=== PATIENT | male | born 1935 | race Caucasian/White ===

== ENCOUNTER 2017-11-12 00:38 | Emergency (ER) | payer MEDICARE ==
[2017-11-12 00:53] VITALS: BP 125/61; PULSE 60; O2SAT 96
--- NOTE | 2017-11-12 00:56 | ERPHSYRPT ---
- History of Present Illness Time Seen by Provider: 11/12/17 00:53 Source: patient, family Exam Limitations: no limitations Patient Subjective Stated Complaint: Wound Check Triage Nursing Assessment: Fistula placed today at [facility], bleeding noted to bandage on left forearm. Spouse states they were instructed to present to the ED if bleeding soaked through bandage. Pt is A&O x3, no distress noted. Pt is on warfarin. Physician History: Fistula placed today at [facility], bleeding noted to bandage on left forearm. Spouse states they were instructed to present to the ED if bleeding soaked through bandage. Timing/Duration: today Associated Symptoms: denies symptoms Hx Tetanus, Diphtheria Vaccination/Date Given: Yes Hx Influenza Vaccination/Date Given: Yes Hx Pneumococcal Vaccination/Date Given: Yes Immunizations Up to Date: Yes - Review of Systems Constitutional: No Symptoms Eyes: No Symptoms Ears, Nose, & Throat: No Symptoms Respiratory: No Symptoms Cardiac: No Symptoms Abdominal/Gastrointestinal: No Symptoms Genitourinary Symptoms: No Symptoms Musculoskeletal: No Symptoms Neurological: No Symptoms Hematologic/Lymphatic: Easy Bleeding - Social History Smoking Status: Current some day smoker Exposure to second hand smoke: No Patient Lives Alone: No - Nursing Vital Signs Nursing Vital Signs: Initial Vital Signs Temperature 97.9 F 11/12/17 00:48 Pulse Rate 60 11/12/17 00:48 Respiratory Rate 14 11/12/17 00:48 Blood Pressure 125/61 11/12/17 00:48 O2 Sat by Pulse Oximetry 96 11/12/17 00:48 Pain Scale Pain Intensity 0 - Physical Exam General Appearance: no apparent distress Extremity Exam: other (mild oozing from fistula sutures,) SpO2: 96 Oxygen Delivery: Room Air - Course Nursing assessment & vital signs reviewed: Yes - Progress Progress: improved Counseled pt/family regarding: diagnosis, need for follow-up - Departure Time of Disposition: 00:56 Departure Disposition: Home Clinical Impression: Arteriovenous fistula, acquired Condition: Stable Critical Care Time: No Referrals: MONIKA VILLARREAL [Primary Care Provider] - Additional Instructions: Please follow the instructions given to you. Please take your medication as prescribed if given. If symptoms recur or get worse, come back to the emergency room if you cannot reach your primary care physician, or call your primary care physician for an appointment. Again if your symptoms get worse, come back to the emergency room. Thanks for visiting emergency room, and let us take care of you.
== END 2017-11-12 01:03 | disposition home or self-care (01) ==
LOC: ED 00:38
DX: I77.0 Arteriovenous fistula, acquired (principal); Z79.01 Long term (current) use of anticoagulants
CPT/HCPCS: 99281

== ENCOUNTER 2020-06-14 18:03 | Emergency (ER) | payer MEDICARE ==
[2020-06-14 18:31] VITALS: BP 120/49; PULSE 54; O2SAT 98
[2020-06-14] MEDS ORDERED: CORTISPORIN EAR DROPS Solution 1OML OT ONE (18:35)
[2020-06-14] MEDS ORDERED: CORTISPORIN EAR DROPS 10 ML SUSPENSION OT ONE (18:39)
--- NOTE | 2020-06-14 18:47 | ERPHSYRPT ---
- History of Present Illness Time Seen by Provider: 06/14/20 18:42 Source: patient, family Exam Limitations: no limitations Patient Subjective Stated Complaint: Pt's stated that last night he woke to a "pop" in his right ear with severe pain and then this morning he had blood and drainage on his pillow Triage Nursing Assessment: Pt brought to the ER by his , dried blood to the outside of the right ear, pt denies pain at this time but states that it comes and goes, denies any pain prior to the "pop", vitals wnl, pulses normal Physician History: Pt's stated that last night he woke to a "pop" in his right ear with severe pain and then this morning he had blood and drainage on his pillow No active bleeding now, no other symptoms Timing/Duration: yesterday ENT Location: ear (R) Prearrival Treatment: no prearrival treatment Associated Symptoms: ear pain (R) Allergies/Adverse Reactions: No Known Drug Allergies Allergy (Verified 06/14/20 18:31) Home Medications: Furosemide 40 mg PO DAILY 06/14/20 [History] Omeprazole 40 mg PO DAILY 06/14/20 [History] Vit B Comp No.3/Folic/C/Biotin [Sejal-Tiera Rx Tablet] 1 tab PO DAILY 06/14/20 [History] Warfarin Sodium 2 mg PO UD 06/14/20 [History] lisinopriL [Lisinopril] 5 mg PO DAILY 06/14/20 [History] Hx Tetanus, Diphtheria Vaccination/Date Given: Yes Hx Influenza Vaccination/Date Given: Yes Hx Pneumococcal Vaccination/Date Given: Yes Travel Risk - International Travel Have you traveled outside of the country in past 3 weeks: No - Coronavirus Screening Are you exhibiting any of the following symptoms?: No Close contact with a COVID-19 positive Pt in past 14-21 Days: No - Review of Systems Constitutional: No Symptoms Eyes: No Symptoms Ears, Nose, & Throat: Ear Pain (rightear, old clots visible) Respiratory: No Symptoms Cardiac: No Symptoms Abdominal/Gastrointestinal: No Symptoms Genitourinary Symptoms: No Symptoms Musculoskeletal: No Symptoms - Past Medical History Pertinent Past Medical History: Yes Cardiac History: Hypertension History: Renal Disease - Past Surgical History Past Surgical History: Yes Musculoskeletal: Joint Replacement Other Surgical History: jaw - Social History Smoking Status: Former smoker Exposure to second hand smoke: No Drug Use: none Patient Lives Alone: No - Nursing Vital Signs Nursing Vital Signs: Initial Vital Signs Temperature 98.0 F 06/14/20 18:23 Pulse Rate 54 L 06/14/20 18:23 Blood Pressure 120/49 06/14/20 18:23 O2 Sat by Pulse Oximetry 98 06/14/20 18:23 Pain Scale Pain Intensity 0 - Physical Exam General Appearance: no apparent distress, alert Eye Exam: bilateral eye: PERRL, EOMI Ear Exam: right ear: bleeding (stopped now, old blood clots in right ear canal), TM perforation Nasal Exam: normal inspection Throat Exam: pharynx normal, moist mucus membranes, No tonsillar exudate Neck Exam: supple Cardiovascular/Respiratory Exam: normal breath sounds, regular rate/rhythm Abdominal Exam: non-tender, soft Neurologic Exam: alert, oriented x 3, sensation nml, No motor deficits Skin Exam: normal color, warm, dry SpO2: 98 - Course Nursing assessment & vital signs reviewed: Yes Ordered Tests: Medication Summary Discontinued Medications Generic Name Dose Route Start Last Admin Trade Name Dillon PRN Reason Stop Dose Admin Neomycin/Polymyxin/Hydrocortisone 10 ml 06/14/20 18:35 Cortisporin Ear Drops Solution 1oml OT 06/14/20 18:36 STAT ONE - Progress Progress: improved Progress Note: 06/14/20 18:44 bleeding stopped, cortisporin otic given, advised to use 4 times a day for 7 days Counseled pt/family regarding: diagnosis, need for follow-up - Departure Departure Disposition: Home Clinical Impression: Bleeding from right ear Condition: Stable Critical Care Time: No Referrals: MONIKA VILLARREAL [Primary Care Provider] - Follow Up with PCP/3 days Additional Instructions: Discharge/Care Plan ANGLEMIKHAIL ROONEY was seen on 06/14/20 in the Emergency Room. The patient was counseled regarding Diagnosis,Lab results, Imaging studies, need for follow up and when to return to the Emergency Room. Prescriptions given: Discharge Note I have spoken with the patient and/or caregivers. I have explained the patient's condition, diagnosis and treatment plan based on the information available to me at this time. I have answered the patient's and/or caregiver's questions and addressed any concerns. The patient and/or caregivers have as good understanding of the patient's diagnosis, condition and treatment plan as can be expected at this point. The vital signs have been stable. The patient's condition is stable and appropriate for discharge from the emergency department. The patient will pursue further outpatient evaluation with the primary care physician or other designated or consulting physician as outlined in the discharge instructions. The patient and/or caregivers are agreeable to this plan of care and follow-up instructions have been explained in detail. The patient and/or caregivers have received these instruction. The patient/and or caregivers are aware that any significant change in condition or worsening of symptoms should prompt an immediate return to this or the closest emergency department or call 911. Use 4 ear drops in right ear four times a day for 7 days
== END 2020-06-14 19:04 | disposition home or self-care (01) ==
LOC: ED 18:03
DX: H92.21 Otorrhagia, right ear (principal); H92.01 Otalgia, right ear; I10 Essential (primary) hypertension
CPT/HCPCS: 99283; A9270-GY

== ENCOUNTER 2021-08-23 16:38 | Emergency (ER) | payer MEDICARE ==
[2021-08-23] MEDS ORDERED: DUONEB 0.5-3 MG/3 ml Neb IH ONE ×2 (16:41→16:44)
[2021-08-23] MEDS ORDERED: solu-MEDROL 125 MG, Sterile H2O 10 ml 10 ML IV ONE ×2 (16:44)
[2021-08-23] MEDS ORDERED: PULMICORT 0.5 MG/2 ML RESPULES IH STA (16:44)
[2021-08-23] MEDS ORDERED: Sodium Chloride 0.9% 1000 ML 1,000 ML IV SCH (16:45)
[2021-08-23 16:58] LABS: Absolute Neutrophil Ct (ANC) 1.45 (1.4-6.9); BASOPHIL % 0.8 % (0.0-0.4); Basophil (Absolute #) 0.03 (0-0.4); Eosinophil (Absolute #) 0.23 (0-0.5); Hematocrit 33.3 % (42-50); Hemoglobin 11.1 gm/dl (12.5-18.0); Lymphocyte (Absolute #) 1.55 (1.0-4.6); Lymphocytes % 40.5 % (24.0-44.0); Mean Cell Volume 110.3 fl (78-100); Mean Corpuscular Hemoglobin 36.8 pg (26-32); Mean Corpuscular Hgb Concent. 33.3 g/dl (32-36); Mean Platelet Volume 13.6 fl (7.5-11.0); Monocyte (Absolute #) 0.57 (0.0-1.3); Monocytes % 14.9 % (0.0-12.0); Neutrophil % 37.8 % (36.0-66.0); Platelet Count 51 K/mm3 (150-450); Red Blood Count 3.02 M/mm3 (4.1-5.6); Red Cell Distribution Width 15.7 % (11.5-14.0); White Blood Count 3.8 K/mm3 (4.0-10.5)
[2021-08-23] MEDS ORDERED: Sterile H2O 10 ml IJ ONE (17:03)
[2021-08-23] MEDS ORDERED: Sodium Chloride 0.9% 1000 ML 1,000 ML ONE (17:03)
[2021-08-23] MEDS ORDERED: solu-MEDROL ONE (17:03)
[2021-08-23 17:20] LABS: ANION GAP 16.9 MEQ/L (5-15); BILIRUBIN,TOTAL 1.6 mg/dL (0.2-1.3); Calcium 9.3 mg/dL (8.4-10.2); Creatinine 1 6.12 mg/dL (0.66-1.25); EST GLOMERULAR FILTRATION RATE 9.3 ML/MIN; Potassium 4.8 mmol/L (3.5-5.1); Total Protein 6.7 g/dL (6.3-8.2)
--- NOTE | 2021-08-23 17:27 | ERPHSYRPT ---
- History of Present Illness Source: patient Exam Limitations: no limitations Patient Subjective Stated Complaint: PT HERE FOR INCREASE SOB SINCE TUE. AND STATES TODAY STARTED COUGHING, PT HAS RENAL FAILURE AND DOES DIALYSIS M/W/F. Triage Nursing Assessment: PT ALERT, RESP LABORED.FACE MASK IN PLACE, HAS DRY COUGH, WHEEZES HEARD, SKIN W/D. HAS EDEMA TO LOWER LEGS THAT PT STATES IS NORMAL Timing/Duration: today Possible Cause: no prior episodes Modifying Factors: Improves With: nothing Associated Symptoms: wheezing, productive cough, No fever, No chills Hx Tetanus, Diphtheria Vaccination/Date Given: Yes Hx Influenza Vaccination/Date Given: Yes Hx Pneumococcal Vaccination/Date Given: Yes Immunizations Up to Date: Yes <ISABEL MIRANDA - Last Filed: 08/23/21 18:17> <MERYL MARIN - Last Filed: 08/23/21 20:25> - History of Present Illness Time Seen by Provider: 08/23/21 17:22 Physician History: Patient is 85-year-old male with significant past medical history of hy pertensive heart disease and chronic kidney disease for which patient is on dialysis started having some chest congestion and shortness of breath started for last 1 week which got worse today so he came to the emergency room. Patient denies any fever nausea vomiting chest pain abdominal pain. Patient is on dialysis Tuesday. (ISABEL MIRANDA) Allergies/Adverse Reactions: No Known Drug Allergies Allergy (Verified 08/23/21 16:41) Home Medications: Furosemide 40 mg PO DAILY 06/14/20 [History] Omeprazole 40 mg PO DAILY 06/14/20 [History] Vit B Comp No.3/Folic/C/Biotin [Sejal-Tiera Rx Tablet] 1 tab PO DAILY 06/14/20 [History] Warfarin Sodium 4 mg PO UD 06/14/20 [History] lisinopriL [Lisinopril] 5 mg PO DAILY 06/14/20 [History] Travel Risk - International Travel Have you traveled outside of the country in past 3 weeks: No - Coronavirus Screening Are you exhibiting any of the following symptoms?: No Close contact with a COVID-19 positive Pt in past 14-21 Days: No - Vaccine Status Have you recieved a Covid-19 vaccination: Yes 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: [employer] <ISABEL MIRANDA - Last Filed: 08/23/21 18:17> - Review of Systems Constitutional: No Fever, No Chills Eyes: No Symptoms Ears, Nose, & Throat: No Symptoms Respiratory: Cough, Dyspnea, Dyspnea on Exertion ([place]), Wheezing Cardiac: No Chest Pain, No Edema, No Syncope Abdominal/Gastrointestinal: No Abdominal Pain, No Nausea, No Vomiting, No Diarrhea Genitourinary Symptoms: No Dysuria Musculoskeletal: No Back Pain, No Neck Pain Skin: No Rash Neurological: No Dizziness, No Focal Weakness, No Sensory Changes Psychological: No Symptoms Endocrine: No Symptoms All Other Systems: Reviewed and Negative <KATHERIN MIRANDASH - Last Filed: 08/23/21 18:17> - Past Medical History Pertinent Past Medical History: Yes Cardiac History: Hypertension History: Dialysis, Renal Disease - Past Surgical History Past Surgical History: Yes Musculoskeletal: Joint Replacement Other Surgical History: jaw,FISTULA LEFT ARM - Social History Smoking Status: Former smoker Exposure to second hand smoke: No Drug Use: none Patient Lives Alone: No <KATHERIN MIRANDASH - Last Filed: 08/23/21 18:17> - Physical Exam General Appearance: mild distress, alert Eye Exam: PERRL/EOMI Ears, Nose, Throat Exam: normal ENT inspection Neck Exam: normal inspection, supple Respiratory Exam: diminished breath sounds, crackles/rales, rhonchi, wheezing Cardiovascular/Chest Exam: normal heart sounds, regular rate/rhythm, edema, JVD Abdominal/Gastrointestinal Exam: soft, No tenderness, No distention, No mass Extremity Exam: non-tender, normal range of motion, normal inspection, no calf tenderness Neurologic Exam: alert, oriented x 3, cooperative, napper runner II-XII nml as tested, sensation nml, No motor deficits Skin Exam: normal color, warm, No dry SpO2: 98 <KATHERIN MIRANDASH - Last Filed: 08/23/21 18:17> - Physical Exam SpO2 Interpretation: normal <MERYL MARIN - Last Filed: 08/23/21 20:25> - Nursing Vital Signs Nursing Vital Signs: Initial Vital Signs Pulse Rate 86 08/23/21 16:45 Respiratory Rate 36 H 08/23/21 16:45 O2 Sat by Pulse Oximetry 96 08/23/21 16:45 Pain Scale Pain Intensity 0 - Course Nursing assessment & vital signs reviewed: Yes EKG Interpreted by Me: A-fib, Non-specific ST Changes - Radiology Exams Chest X-ray Interpretation: Reviewed by me (CHF changes) <ISABEL MIRANDA - Last Filed: 08/23/21 18:17> Ordered Tests: Active Orders 24 hr Category Date Time Status Supervisor Elementary Education STAT Care 08/23/21 16:44 Active EKG-ER Only STAT Care 08/23/21 16:44 Active Oxygen-ED Only Nasal Cannula 3 lpm Care 08/23/21 16:44 Active CHEST 1 VIEW (PORTABLE) Stat Exams 08/23/21 17:05 Taken CBC W DIFF Stat Lab 08/23/21 16:55 Completed CMP Stat Lab 08/23/21 16:55 Completed NT PRO BNP Stat Lab 08/23/21 16:55 Completed TROPONIN Q3H Lab 08/23/21 16:55 Completed TROPONIN Q3H Lab 08/23/21 19:50 Completed TROPONIN Q3H Lab 08/23/21 22:45 Ordered TROPONIN Q3H Lab 08/24/21 01:45 Ordered TROPONIN Q3H Lab 08/24/21 04:45 Ordered Respiratory Therapy Assessment DAILY RT 08/23/21 16:52 Active Medication Summary Generic Name Dose Route Start Last Admin Trade Name Freq PRN Reason Stop Dose Admin Sodium Chloride 1,000 mls @ 50 mls/hr 08/23/21 16:45 08/23/21 17:08 Sodium Chloride 0.9% 1000 Ml IV 09/22/21 16:44 50 mls/hr .Q20H KRYSTLE Administration Discontinued Medications Generic Name Dose Route Start Last Admin Trade Name Freq PRN Reason Stop Dose Admin Albuterol/Ipratropium Confirm 08/23/21 16:41 Duoneb 0.5-3 Mg/3 Ml Neb Administered 08/23/21 16:42 Dose 3 ml IH .STK-MED ONE Albuterol/Ipratropium 3 ml 08/23/21 16:44 08/23/21 16:45 Duoneb 0.5-3 Mg/3 Ml Neb IH 08/23/21 16:45 3 ml STAT ONE Administration Budesonide 0.5 mg 08/23/21 16:44 08/23/21 16:50 Pulmicort 0.5 Mg/2 Ml Respules IH 08/23/21 16:45 0.5 mg UD STA Administration Methylprednisolone Sodium 0 mg 08/23/21 16:44 08/23/21 17:07 Succinate 125 mg/ Sterile IV 08/23/21 16:45 125 mg Water 10 ml STAT ONE Administration Methylprednisolone Sodium Succinate Confirm 08/23/21 17:03 Solu-Medrol Administered 08/23/21 17:04 Dose 125 mg .ROUTE .STK-MED ONE Sterile Water Confirm 08/23/21 17:03 Sterile H2o 10 Ml Administered 08/23/21 17:04 Dose 10 ml IJ .STK-MED ONE Lab/Rad Data: Laboratory Result Diagrams 08/23/21 16:55 08/23/21 16:55 Laboratory Results 08/23/21 08/23/21 08/23/21 Range/Units 16:55 16:55 16:55 WBC 3.8 L (4.0-10.5) K/mm3 RBC 3.02 L (4.1-5.6) M/mm3 Hgb 11.1 L (12.5-18.0) gm/dl Hct 33.3 L (42-50) % MCV 110.3 H (78-100) fl MCH 36.8 H (26-32) pg MCHC 33.3 (32-36) g/dl RDW 15.7 H (11.5-14.0) % Plt Count 51 L (150-450) K/mm3 MPV 13.6 H (7.5-11.0) fl Gran % 37.8 (36.0-66.0) % Eos # (Auto) 0.23 (0-0.5) Absolute Lymphs (auto) 1.55 (1.0-4.6) Absolute Monos (auto) 0.57 (0.0-1.3) Lymphocytes % 40.5 (24.0-44.0) % Monocytes % 14.9 H (0.0-12.0) % Eosinophils % 6.0 H (0.00-5.0) % Basophils % 0.8 (0.0-0.4) % Absolute Granulocytes 1.45 (1.4-6.9) Basophils # 0.03 (0-0.4) Sodium 134 L (137-145) mmol/L Potassium 4.8 (3.5-5.1) mmol/L Chloride 96 L (98-107) mmol/L Carbon Dioxide 26 (22-30) mmol/L Anion Gap 16.9 H (5-15) MEQ/L BUN 38 H (9-20) mg/dL Creatinine 6.12 H (0.66-1.25) mg/dL Estimated GFR 9.3 ML/MIN Glucose 100 (74-106) mg/dL Calcium 9.3 (8.4-10.2) mg/dL Total Bilirubin 1.60 H (0.2-1.3) mg/dL AST 25 (17-59) U/L ALT 19 (0-50) U/L Alkaline Phosphatase 109 (38-126) U/L Troponin I 0.061 H* (0.000-0.034) ng/mL NT-Pro-B Natriuret Pep 35184 H (0-1800) pg/mL Serum Total Protein 6.7 (6.3-8.2) g/dL Albumin 4.0 (3.5-5.0) g/dL - Progress Progress: improved, re-examined Air Movement: good Blood Culture(s) Obtained: No Antibiotics given: No <ISABEL MIRANDA - Last Filed: 08/23/21 18:17> - Progress Counseled pt/family regarding: lab results, diagnosis, rad results <MERYL MARIN - Last Filed: 08/23/21 20:25> - Progress Progress Note: 08/23/21 17:49 Patient is reexamined. Patient is feeling much better. Patient troponin came 0.061. Normal range is up to 0.034. Patient has a chronic kidney disease and patient is on dialysis so elevated troponin is secondary to chronic kidney disease. Patient denies any chest pain. Patient EKG does not show any ST elev ation. Patient primary care physician in [place] while patient get his dialysis in [facility] and her his cyber systems administrator is Dr. Boothe. We contacted [facility] [place] but they do not have any bed available. I talked to Dr. Rios and I discussed this case with him he advised that we will follow another troponin if it is downward trend will send patient home otherwise will admit and follow the troponins. Above plan discussed with Dr. Marin who took over at 7 PM. (ISABEL MIRANDA) 08/23/21 19:26 Medical decision making: This patient was discussed with me by Dr. Miranda. I was told that if the next troponin is the same or lower I am to send the patient home. If it increases, I am to contact Dr. Rios for admission into the hospital and to follow up troponins. 08/23/21 20:23 Per the above plan, since the troponin has decreased we will send the patient home. Patient does not have chest pain at the time of discharge. His shortness of breath has improved. He will undergo dialysis tomorrow and his shortness of breath will improve even more. (MERYL MARIN) <ISABEL MIRANDA - Last Filed: 08/23/21 18:17> - Departure Critical Care Time: No <MERYL MARIN - Last Filed: 08/23/21 20:25> - Departure Clinical Impression: CHF (congestive heart failure), Chronic kidney disease with end stage renal failure on dialysis, Shortness of breath Condition: Stable Referrals: MONIKA VILLARREAL [Primary Care Provider] - Instructions: Heart Failure Additional Instructions: Keep your renal dialysis appointment for in the morning. Follow-up with your primary prescribing provider and cyber systems administrator for further management.
[2021-08-23 19:09] VITALS: O2SAT 95
[2021-08-23 20:58] VITALS: BP 130/54; PULSE 75
--- NOTE | 2021-08-24 08:48 | XRAY ---
Indication: CHF. Comparison: None Portable chest demonstrates cardiomegaly, mild pulmonary edema, small bibasilar effusions right greater than left, and minimal right base subsegmental atelectasis favoring cardiac decompensation. Superimposed pneumonia not completely excluded. Bony thorax intact with osteopenia, degenerative changes, and right shoulder arthroplasty.
== END 2021-08-23 21:03 | disposition home or self-care (01) ==
LOC: ED 16:38
DX: R06.02 Shortness of breath (principal); N18.9 Chronic kidney disease, unspecified; I51.9 Heart disease, unspecified; R05.9 Cough, unspecified; I10 Essential (primary) hypertension; Z79.899 Other long term (current) drug therapy; Z20.822 Contact with and (suspected) exposure to COVID-19
CPT/HCPCS: 36415; 71045; 80053; 83880; 84484; 85025; 93005; 93041; 94640; 96374; 99284; J2930; A9270-GY

== ENCOUNTER 2021-09-12 13:21 | Emergency (ER) | payer MEDICARE ==
[2021-09-12 14:43] LABS: Absolute Neutrophil Ct (ANC) 12.76 (1.4-6.9); BASOPHIL % 0.2 % (0.0-0.4); Basophil (Absolute #) 0.03 (0-0.4); Eosinophil % 0.2 % (0.00-5.0); Eosinophil (Absolute #) 0.03 (0-0.5); Hematocrit 31.2 % (42-50); Hemoglobin 10.6 gm/dl (12.5-18.0); Lymphocyte (Absolute #) 0.45 (1.0-4.6); Lymphocytes % 3.2 % (24.0-44.0); Mean Corpuscular Hemoglobin 36.7 pg (26-32); Mean Platelet Volume 12.1 fl (7.5-11.0); Monocytes % 6.4 % (0.0-12.0); Platelet Count 68 K/mm3 (150-450); Red Blood Count 2.89 M/mm3 (4.1-5.6); Red Cell Distribution Width 16.3 % (11.5-14.0); White Blood Count 14.2 K/mm3 (4.0-10.5)
[2021-09-12 14:49] LABS: INR 3.98 (0.8-3.0)
[2021-09-12 14:53] LABS: ALBUMIN 3.3 g/dL (3.5-5.0); ANION GAP 13.3 MEQ/L (5-15); BILIRUBIN,TOTAL 2.8 mg/dL (0.2-1.3); Calcium 8.5 mg/dL (8.4-10.2); Creatinine 1 3.45 mg/dL (0.66-1.25); Potassium 4.5 mmol/L (3.5-5.1); Total Protein 5.9 g/dL (6.3-8.2)
[2021-09-12] MEDS ORDERED: SUBLIMAZE 100 MCG/2 ML IV ONE (15:11)
[2021-09-12] MEDS ORDERED: Zofran 4 MG/2 ML VIAL IV ONE (15:12)
[2021-09-12] MEDS ORDERED: Zofran 4 MG/2 ML VIAL ONE (15:15)
[2021-09-12] MEDS ORDERED: SUBLIMAZE 100 MCG/2 ML ONE (15:16)
[2021-09-12] MEDS ORDERED: SUBLIMAZE 100 MCG/2 ML IM ONE (15:19)
[2021-09-12] MEDS ORDERED: KEFLEX 500 MG PO ONE (15:27)
[2021-09-12 15:31] LABS: Slide Review 1 YES
[2021-09-12] MEDS ORDERED: KEFLEX 500 MG ONE (15:31)
--- NOTE | 2021-09-12 15:50 | ERPHSYRPT ---
- History of Present Illness Time Seen by Provider: 09/12/21 13:36 Source: patient Exam Limitations: no limitations Patient Subjective Stated Complaint: " I have pain and swelling in my lower legs, I think it's my gout. My left leg is worse than my right . " Triage Nursing Assessment: Pt presents to ER, daughter drove him to ER from dialysis. Pt just had 2-3kg removed from dialysis. Pt is here complaining of bilateral lower extermity swelling x 3-4 days. Pt does have 2+ pitting edema bilaterally and redness noted to left lower extremity. Area is tender to touch and pt is unable to walk or put pressure on feet without increased pain. Pt betsy blancases his gout is flaring up Pt is wheeled to ER exam room 3 in wheelchair and able to stand, turn, and pivot into bed with assist of nursing staff. Pt is alert and oriented x3. Skin is slightly jaundice, warm, and dry. Pt is hard of hearing. Lung sounds are clear and equal througout. Respirations easy. Denies shortness of breath. Denies any other pain or symptoms other than pain in legs. Pt abdomen is soft and nontender. Noted dialysis shunt in left lower arm. Pt states his daughter lives with him and he has a home health nurse visit him weekly. Physician History: 45-year-old male with history of end-stage renal disease on dialysis, hypertension, hyperlipidemia, congestive heart failure presented in the ER with chief complaint of bilateral lower extremity swelling and some redness on the left lower extremity for the last 3 to 4 days. Patient report he had a small bump/cut on the left leg few days ago and is gradually started to swell and becoming red and painful. Denies any fall or trauma. Patient thinks it is is gout flareup. He denies any pain with movements at left ankle or toes. No fever or chills reported. No difficulty movements of knees. Patient is on Coumadin. Timing/Duration: day(s) (4), constant, gradual onset, worse Quality: painful Severity: moderate Location: extremities Possible Causes: other Associated Symptoms: swelling/mass/lumps Allergies/Adverse Reactions: formaldehyde Allergy (Verified 09/12/21 14:15) mercury (elemental) Allergy (Verified 09/12/21 14:15) Home Medications: Furosemide 40 mg PO DAILY 06/14/20 [History] Omeprazole 40 mg PO DAILY 06/14/20 [History] Warfarin Sodium 4 mg PO UD 06/14/20 [History] lisinopriL [Lisinopril] 5 mg PO UD 06/14/20 [History] Loratadine 10 mg PO Q12H PRN PRN 09/12/21 [History] Hx Tetanus, Diphtheria Vaccination/Date Given: No Hx Influenza Vaccination/Date Given: Yes Hx Pneumococcal Vaccination/Date Given: No Immunizations Up to Date: No Travel Risk - International Travel Have you traveled outside of the country in past 3 weeks: No - Coronavirus Screening Are you exhibiting any of the following symptoms?: No Close contact with a COVID-19 positive Pt in past 14-21 Days: No - Vaccine Status Have you recieved a Covid-19 vaccination: Yes 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: [employer] - Review of Systems Constitutional: No Symptoms Ears, Nose, & Throat: No Symptoms Respiratory: No Symptoms Cardiac: No Symptoms Abdominal/Gastrointestinal: No Symptoms Musculoskeletal: No Symptoms Skin: Cellulitis, Induration, Rash Neurological: No Symptoms Psychological: No Symptoms Endocrine: No Symptoms Hematologic/Lymphatic: No Symptoms Immunological/Allergic: No Symptoms - Past Medical History Pertinent Past Medical History: Yes Cardiac History: Hypertension Respiratory History: COPD History: Dialysis, Renal Disease - Past Surgical History Past Surgical History: Yes Musculoskeletal: Joint Replacement Other Surgical History: jaw,FISTULA LEFT ARM - Social History Smoking Status: Never smoker Exposure to second hand smoke: No Drug Use: none Patient Lives Alone: No - Nursing Vital Signs Nursing Vital Signs: Initial Vital Signs Temperature 97.4 F 09/12/21 13:32 Pulse Rate 77 09/12/21 13:32 Respiratory Rate 18 09/12/21 13:32 Blood Pressure 113/45 09/12/21 13:32 O2 Sat by Pulse Oximetry 97 09/12/21 13:32 Pain Scale Pain Intensity 6 - Physical Exam General Appearance: no apparent distress, alert Eye Exam: photophobia Ears, Nose, Throat Exam: normal ENT inspection Neck Exam: normal inspection, full range of motion Respiratory Exam: normal breath sounds, lungs clear Cardiovascular Exam: regular rate/rhythm, normal heart sounds Back Exam: normal inspection Extremity Exam: inflammation, pedal edema, swelling, tenderness, other (Bilateral lower extremity 2+ pitting edema. Erythema redness left distal lower leg with a small skin cut. Mildly increased temperature and tenderness to touch left lower extremity. Intact range of motion at ankle and knee joint. No redness of the foot.) Neurologic Exam: alert, oriented x 3, cooperative Skin Exam: normal color SpO2 Interpretation: normal SpO2: 95 O2 Delivery: Room Air Ordered Tests: Active Orders 24 hr Category Date Time Status House Regular Diet Diet 09/12/21 Dinner Active BLOOD CULTURE Stat Lab 09/12/21 14:40 Received CBC W DIFF Stat Lab 09/12/21 14:01 Completed CMP Stat Lab 09/12/21 14:40 Completed PT INR [PROTIME WITH INR] Stat Lab 09/12/21 14:40 Completed Uric Acid Stat Lab 09/12/21 14:40 Completed Medication Summary Discontinued Medications Generic Name Dose Route Start Last Admin Trade Name Rizwanq PRN Reason Stop Dose Admin Cephalexin HCl 500 mg 09/12/21 15:27 09/12/21 15:34 Cephalexin Mh500 Mg Capsule PO 09/12/21 15:28 500 mg STAT ONE Administration Cephalexin HCl Confirm 09/12/21 15:31 Cephalexin Mh500 Mg Capsule Administered 09/12/21 15:32 Dose 500 mg .ROUTE .STK-MED ONE Fentanyl Citrate 50 mcg 09/12/21 15:11 09/12/21 15:26 Fentanyl Citrate 100 Mcg/2 Ml* Vial IV 09/12/21 15:12 Not Given STAT ONE Fentanyl Citrate Confirm 09/12/21 15:16 Fentanyl Citrate 100 Mcg/2 Ml* Vial Administered 09/12/21 15:17 Dose 100 mcg .ROUTE .STK-MED ONE Fentanyl Citrate 50 mcg 09/12/21 15:19 09/12/21 15:21 Fentanyl Citrate 100 Mcg/2 Ml* Vial IM 09/12/21 15:20 50 mcg STAT ONE Administration Ondansetron HCl 4 mg 09/12/21 15:12 09/12/21 15:27 Ondansetron Hcl 4 Mg/2 Ml Vial IV 09/12/21 15:13 Not Given STAT ONE Ondansetron HCl Confirm 09/12/21 15:15 Ondansetron Hcl 4 Mg/2 Ml Vial Administered 09/12/21 15:16 Dose 4 mg .ROUTE .STK-MED ONE Lab/Rad Data: Laboratory Result Diagrams 09/12/21 14:01 09/12/21 14:40 Laboratory Results 09/12/21 09/12/21 09/12/21 Range/Units 14:40 14:40 14:40 WBC (4.0-10.5) K/mm3 RBC (4.1-5.6) M/mm3 Hgb (12.5-18.0) gm/dl Hct (42-50) % MCV (78-100) fl MCH (26-32) pg MCHC (32-36) g/dl RDW (11.5-14.0) % Plt Count (150-450) K/mm3 MPV (7.5-11.0) fl Gran % (36.0-66.0) % Eos # (Auto) (0-0.5) Absolute Lymphs (auto) (1.0-4.6) Absolute Monos (auto) (0.0-1.3) Lymphocytes % (24.0-44.0) % Monocytes % (0.0-12.0) % Eosinophils % (0.00-5.0) % Basophils % (0.0-0.4) % Absolute Granulocytes (1.4-6.9) Basophils # (0-0.4) PT 47.0 H (9.4-12.5) SECONDS INR 3.98 H (0.8-3.0) Sodium 137 (137-145) mmol/L Potassium 4.5 (3.5-5.1) mmol/L Chloride 97 L (98-107) mmol/L Carbon Dioxide 32 H (22-30) mmol/L Anion Gap 13.3 (5-15) MEQ/L BUN 37 H (9-20) mg/dL Creatinine 3.45 H (0.66-1.25) mg/dL Estimated GFR 18.0 ML/MIN Glucose 91 (74-106) mg/dL Uric Acid 2.6 L (3.5-7.2) mg/dL Calcium 8.5 (8.4-10.2) mg/dL Total Bilirubin 2.80 H (0.2-1.3) mg/dL AST 64 H (17-59) U/L ALT 84 H (0-50) U/L Alkaline Phosphatase 139 H (38-126) U/L Serum Total Protein 5.9 L (6.3-8.2) g/dL Albumin 3.3 L (3.5-5.0) g/dL Slides for Path Review 09/12/21 Range/Units 14:01 WBC 14.2 H (4.0-10.5) K/mm3 RBC 2.89 L (4.1-5.6) M/mm3 Hgb 10.6 L (12.5-18.0) gm/dl Hct 31.2 L (42-50) % MCV 108.0 H (78-100) fl MCH 36.7 H (26-32) pg MCHC 34.0 (32-36) g/dl RDW 16.3 H (11.5-14.0) % Plt Count 68 L (150-450) K/mm3 MPV 12.1 H (7.5-11.0) fl Gran % 90.0 H (36.0-66.0) % Eos # (Auto) 0.03 (0-0.5) Absolute Lymphs (auto) 0.45 L (1.0-4.6) Absolute Monos (auto) 0.90 (0.0-1.3) Lymphocytes % 3.2 L (24.0-44.0) % Monocytes % 6.4 (0.0-12.0) % Eosinophils % 0.2 (0.00-5.0) % Basophils % 0.2 (0.0-0.4) % Absolute Granulocytes 12.76 H (1.4-6.9) Basophils # 0.03 (0-0.4) PT (9.4-12.5) SECONDS INR (0.8-3.0) Sodium (137-145) mmol/L Potassium (3.5-5.1) mmol/L Chloride (98-107) mmol/L Carbon Dioxide (22-30) mmol/L Anion Gap (5-15) MEQ/L BUN (9-20) mg/dL Creatinine (0.66-1.25) mg/dL Estimated GFR ML/MIN Glucose (74-106) mg/dL Uric Acid (3.5-7.2) mg/dL Calcium (8.4-10.2) mg/dL Total Bilirubin (0.2-1.3) mg/dL AST (17-59) U/L ALT (0-50) U/L Alkaline Phosphatase (38-126) U/L Serum Total Protein (6.3-8.2) g/dL Albumin (3.5-5.0) g/dL Slides for Path Review YES - Progress Progress: improved Progress Note: 09/12/21 15:59 Is given symptomatic treatment for pain. Has a white count of 14, INR of 3.98. Discussed with pharmacy and pharmacist has spoken with the patient and will frequently monitor INR. Recommended holding off on his tonight dose of Coumadin and decreasing dose almost 10% for next 1 week and daily INR check. He is started on Keflex as I believe patient has cellulitis from skin abrasion he had before. Uric acid is 2.6. Recommended outpatient follow-up for reevaluation on Tuesday. Does not have any fall or bony tenderness and do not think needs any imaging. Discussed signs symptoms of worsening needing return to ER which he seems understanding. Stable for discharge. Counseled pt/family regarding: lab results, diagnosis, need for follow-up - Departure Departure Disposition: Home Clinical Impression: Cellulitis of left lower extremity Condition: Stable Critical Care Time: No Referrals: MONIKA VILLARREAL [Primary Care Provider] - (Tuesday for reevaluation) Instructions: Cellulitis (Skin Infection), Adult (DC) Additional Instructions: Take Tylenol as needed for pain. Keep your lower extremities elevated when resting. Use compression stocking. Continue with your Lasix. Follow-up with primary care for reevaluation Tuesday. Daily INR/Coumadin level checked. Hold off on your dose of Coumadin for tonight and follow schedule given to you by pharmacy for rest of the week. Continue with antibiotics. Taking antibiotics may increase your INR/Coumadin level in the blood and make you high risk for bleeding. Return to ER if have bleeding, chest pain, abdominal pain, c onfusion etc. Prescriptions: Cephalexin Mh 250 mg [Keflex 250 mg] 250 mg PO BID #14
[2021-09-12 16:34] VITALS: BP 112/52; PULSE 79; O2SAT 98
== END 2021-09-12 16:42 | disposition home or self-care (01) ==
LOC: ED 13:21
DX: L03.116 Cellulitis of left lower limb (principal); L03.115 Cellulitis of right lower limb; I12.0 Hypertensive chronic kidney disease with stage 5 chronic kidney disease or end stage renal disease; N18.6 End stage renal disease; Z99.2 Dependence on renal dialysis; E78.5 Hyperlipidemia, unspecified; I50.9 Heart failure, unspecified
CPT/HCPCS: 36415; 80053; 84550; 85025; 85610; 87040; 96372; 99284; J2405; J3010; A9270-GY